=== PATIENT | male | born 1975 | race Caucasian/White ===

== ENCOUNTER 2017-11-16 08:35 | Emergency (ER) | payer SELFPAY ==
[2017-11-16] MEDS ORDERED: Lidocaine 1% 20 ML MDV ONE (08:53)
[2017-11-16] MEDS ORDERED: Triple Antibiotic Oint 1 GM Packet ONE (09:27)
== END 2017-11-16 09:40 | disposition home or self-care (01) ==
LOC: MADERS 08:35
DX: S61.012A Laceration without foreign body of left thumb without damage to nail, initial encounter (principal); W26.0XXA Contact with knife, initial encounter
CPT/HCPCS: 12002; J2001